=== PATIENT | male | born 1990 | race Hispanic/Latino ===

== ENCOUNTER 2018-10-18 11:19 | Emergency (ER) | payer BC, OTHER ==
[2018-10-18] MEDS ORDERED: IBUPROFEN 600 MG TABLET ONE (12:16)
== END 2018-10-18 13:29 | disposition home or self-care (01) ==
LOC: EDH 11:19
DX: S90.31XA Contusion of right foot, initial encounter (principal); W18.39XA Other fall on same level, initial encounter; Y93.01 Activity, walking, marching and hiking; Y92.098 Other place in other non-institutional residence as the place of occurrence of the external cause; Y99.8 Other external cause status
CPT/HCPCS: 73630

== ENCOUNTER 2021-06-12 15:31 | Emergency (ER) | payer BC, MEDICARE ==
[~2021-06-12] VITALS: Ht 167.6 cm; Wt 90.7 kg
[2021-06-12 15:45] VITALS: BP 124/66
[2021-06-12] MEDS ORDERED: ACETAMINOPHEN 500 MG TABLET PO ONE (16:00)
[2021-06-12] MEDS ORDERED: TETANUS/DIPHTHERIA TOXOID [ADULT] 0.5 ML VIAL IM ONE (16:00)
[2021-06-12] MEDS ORDERED: AMOX/CLAV 875/125MG TAB PO ONE (16:00)
[2021-06-12] MEDS ORDERED: AMOX1TAB16 PO (16:43)
== END 2021-06-12 16:46 | disposition home or self-care (01) ==
LOC: EDH 15:31
DX: S61.257A Open bite of left little finger without damage to nail, initial encounter (principal); Z79.899 Other long term (current) drug therapy; W54.0XXA Bitten by dog, initial encounter; Y93.89 Activity, other specified; Y92.89 Other specified places as the place of occurrence of the external cause; Y99.8 Other external cause status
CPT/HCPCS: 73140; 90471; 90714

== ENCOUNTER 2022-03-02 11:56 | Emergency (ER) | payer BC ==
[~2022-03-02] VITALS: Ht 167.6 cm; Wt 95.3 kg
[~2022-03-02 11:56] MED LIST: AMOX1TAB16 PO
[2022-03-02 12:09] VITALS: BP 119/80
[2022-03-02] MEDS ORDERED: ACETAMINOPHEN 500 MG TABLET ONE (12:43)
[2022-03-02] MEDS ORDERED: KETOROLAC 30MG VIAL (30MG/ML) ONE (12:43)
[2022-03-02] MEDS ORDERED: ACETAMINOPHEN 500 MG TABLET PO ONE (13:00)
[2022-03-02] MEDS ORDERED: KETOROLAC 30MG VIAL (30MG/ML) IM ONE (13:00)
[2022-03-02] MEDS ORDERED: LIDOCAINE HCL MPF 1% 5ML VIAL IM SCH (13:30)
[2022-03-02] MEDS ORDERED: LIDOCAINE HCL 1% 20 ML VIAL ONE (13:58)
[2022-03-02] MEDS ORDERED: SULF1TAB42 PO (14:36)
[2022-03-02] MEDS ORDERED: CEPH500B PO (14:36)
== END 2022-03-02 14:54 | disposition home or self-care (01) ==
LOC: EDH 11:56
DX: L02.31 Cutaneous abscess of buttock (principal); Z79.899 Other long term (current) drug therapy; Z79.1 Long term (current) use of non-steroidal anti-inflammatories (NSAID)
CPT/HCPCS: 99284; 10060; 96372; J1885; 99282; J3490

== ENCOUNTER 2022-03-04 15:37 | Emergency (ER) | payer BC ==
[~2022-03-04 15:37] MED LIST changes: +CEPH500B PO; +SULF1TAB42 PO
== END 2022-03-04 15:58 | disposition left against medical advice (07) ==
LOC: EDH 15:37
DX: G89.18 Other acute postprocedural pain (principal); Z53.21 Procedure and treatment not carried out due to patient leaving prior to being seen by health care provider